=== PATIENT | male | born 1970 | race Caucasian/White ===

== ENCOUNTER 2022-12-19 18:24 | Emergency (ER) | payer SELFPAY ==
[~2022-12-19] VITALS: Ht 182.9 cm; Wt 84.5 kg
[2022-12-19 18:46] VITALS: BP 124/81
[2022-12-19] MEDS ORDERED: LIDOcaine 1% W/epiNEPHrine 1:100,000 20ml vial SQ ONE (20:35)
[2022-12-19] MEDS ORDERED: ibuprofen tablet 400 MG TABLET PO ONE (20:50)
[2022-12-19] MEDS ORDERED: sulfamethoxazole/trimethoprim DS (800/160mg) tablet PO ONE (20:50)
[2022-12-19] MEDS ORDERED: SULF1TAB49 PO (21:05)
== END 2022-12-19 21:19 | disposition home or self-care (01) ==
LOC: ER 18:25
DX: L03.116 Cellulitis of left lower limb (principal)
CPT/HCPCS: 10060; 99284; A6449

== ENCOUNTER 2023-04-26 07:12 | Emergency (ER) | payer OTHER ==
[~2023-04-26] VITALS: Ht 182.9 cm; Wt 86.4 kg
--- NOTE | 2023-04-26 08:15 | NUR ---
NA FOR ROOM PLACEMENT X3, NOT IN LOBBY
--- NOTE | 2023-04-26 08:50 | NUR ---
[id number] I have reviewed and agree with all interventions, assessments performed and documented by RENATE Crouch.
[2023-04-26] MEDS ORDERED: HYDR-3686 PO (09:20)
[2023-04-26] MEDS ORDERED: METH4TAB81 PO (09:20)
[2023-04-26] MEDS ORDERED: CLOB15CR11 TOP (09:20)
--- NOTE | 2023-04-26 09:22 | NUR ---
pt states he believes to have hookworm as he was treated in [facility] for fungal infection and has been struggling with this after having syphillis states he drank a kambucha yesterday and started vomiting black. [id number]
[2023-04-26 10:31] VITALS: BP 143/85; PULSE 123; RESP 18; TEMP 98.2; O2SAT 98
== END 2023-04-26 10:39 | disposition home or self-care (01) ==
LOC: ER 07:12
DX: B83.9 Helminthiasis, unspecified (principal); L30.8 Other specified dermatitis; Z79.899 Other long term (current) drug therapy
CPT/HCPCS: 99283